=== PATIENT | female | born 1990 | race Caucasian/White ===

== ENCOUNTER 2021-12-02 18:14 | Emergency (ER) | payer OTHER ==
[~2021-12-02] VITALS: Ht 165.1 cm; Wt 111.1 kg
[2021-12-02 18:34] VITALS: BP 151/100
[2021-12-02] MEDS ORDERED: KETOROLAC 30 MG/ML VIAL IM ONE (18:35)
--- NOTE | 2021-12-02 18:37 | NUR ---
pt [facility] assisted to xray
[2021-12-02] MEDS ORDERED: NAPR-1704 PO (18:55)
--- NOTE | 2021-12-02 19:40 | NUR ---
31 y/o female bib self from home, c/o left hand 1st digit pain for 3 months. pt states pain has worsened over the past 3 days. pt has visible swelling in area. denies any recent trauma, overexertion or injury. pt denies numbness, tingling, loss of sensation. a&ox4, ambulates with steady gait. states she took tylenol, motrin, gabapentin with no relief. pmh: denies nka med: tylenol, motrin, gabapentin
[2021-12-02 19:47] VITALS: BP 121/82
== END 2021-12-02 19:45 | disposition home or self-care (01) ==
LOC: MED 18:14
DX: M65.4 Radial styloid tenosynovitis [de Quervain] (principal); Z79.899 Other long term (current) drug therapy
CPT/HCPCS: 29125; 73130; 96372; 99283; J1885

== ENCOUNTER 2021-12-31 06:48 | Outpatient (CLI) | payer OTHER ==
[~2021-12-31 06:48] MED LIST: NAPR-1704 PO
[2021-12-31 07:35] LABS: BASOPHILS % (AUTO) 0.6 % (0.0-2.0); EOSINOPHILS # (AUTO) 0.3 K/uL (0-0.4); EOSINOPHILS % (AUTO) 3.8 % (0.0-4.0); HEMATOCRIT 40.1 % (36-48); HEMOGLOBIN 13.5 g/dL (12.0-16.0); LYMPHOCYTES # (AUTO) 2.2 K/uL (2.5-16.5); LYMPHOCYTES % (AUTO) 29.6 % (20.5-51.1); MEAN CORPUSCULAR HEMOGLOBIN 27 pg (27-31); MEAN CORPUSCULAR HGB CONC 34 g/dL (33-37); MEAN CORPUSCULAR VOLUME 80.4 fL (80-94); MONOCYTES # (AUTO) 0.5 K/uL (0.8-1.0); MONOCYTES % (AUTO) 6.2 % (1.7-9.3); NEUTROPHILS # (AUTO) 4.3 K/uL (1.8-7.7); NEUTROPHILS % (AUTO) 59.8 % (42.2-75.2); PLATELET COUNT (AUTO) 283 K/uL (140-450); RED BLOOD CELL COUNT(AUTO) 4.98 MIL/uL (4.20-5.40); WHITE BLOOD COUNT (AUTO) 7.3 K/uL (4.8-10.8)
[2021-12-31 07:48] LABS: ALBUMIN 3.7 g/dL (3.4-5.0); ANION GAP 12.2 (8-16); CARBON DIOXIDE 27.1 mmol/L (21-32); CHOL/HDL RATIO 3.5 (1-4.5); CREATININE 0.5 mg/dL (0.6-1.3); POTASSIUM 4.3 mmol/L (3.5-5.1); TOTAL BILIRUBIN 0.5 mg/dL (0.0-1.0)
[2021-12-31 11:27] LABS: APPEARANCE,URINE SL CLOUDY (CLEAR); BILIRUBIN,URINE NEGATIVE (NEGATIVE); BLOOD, URINE NEGATIVE (NEGATIVE); COLOR,URINE YELLOW (YELLOW); LEUKOCYTE ESTERASE ,URINE NEGATIVE (NEGATIVE); NITRITE, URINE NEGATIVE (NEGATIVE); UGLUCOSE NEGATIVE (NEGATIVE)
[2022-01-01 15:24] LABS: HEPATITIS B SURFACE ANTIBODY REACTIVE (0.00 - 0.99)
== END 2021-12-31 20:08 | disposition home or self-care (01) ==
LOC: MLB 06:48
PROVIDERS: ATTEND Internal Medicine
DX: Z00.01 Encounter for general adult medical examination with abnormal findings (principal); Z11.3 Encounter for screening for infections with a predominantly sexual mode of transmission; E11.9 Type 2 diabetes mellitus without complications; E66.9 Obesity, unspecified
CPT/HCPCS: 36415; 80053; 81003; 82043; 83036; 83519; 84439; 84681; 85025; 86592; 86702; 86704; 86706; 86803; 87340

== ENCOUNTER 2023-04-30 20:10 | Emergency (ER) | payer OTHER ==
[~2023-04-30] VITALS: Ht 162.6 cm; Wt 120.2 kg
[2023-04-30 20:50] VITALS: BP 150/89; PULSE 95; RESP 17; TEMP 97.8; O2SAT 99
[2023-04-30 20:55] VITALS: BP 150/89; PULSE 95; RESP 17; TEMP 97.8; O2SAT 99
[2023-04-30 22:49] LABS: APPEARANCE,URINE CLEAR (CLEAR); BILIRUBIN,URINE NEGATIVE (NEGATIVE); BLOOD, URINE 3+ (NEGATIVE); COLOR,URINE YELLOW (YELLOW); LEUKOCYTE ESTERASE ,URINE NEGATIVE (NEGATIVE); NITRITE, URINE POSITIVE (NEGATIVE); PROTEIN,URINE 2+ (NEGATIVE); UGLUCOSE 2+ (NEGATIVE); UROBILINOGEN,URINE 0.2 EU/dL (0.2 - 1)
[2023-04-30 23:03] LABS: BACTERIA,URINE >30 (MANY) /HPF (None Seen); WBC,URINE 0-5 /HPF (0-5)
[2023-04-30 23:04] LABS: MUCUS,URINE 1+ /LPF (None Seen); SQUAMOUS EPITHELIAL CELL,UR 0-3 (FEW) /LPF (0-3 (FEW))
[2023-04-30] MEDS ORDERED: CEPH-588 PO (23:16)
== END 2023-04-30 23:29 | disposition home or self-care (01) ==
LOC: MED 20:10
DX: N39.0 Urinary tract infection, site not specified (principal); R73.9 Hyperglycemia, unspecified; Z79.899 Other long term (current) drug therapy
CPT/HCPCS: 81001; 81025; 87086; 99283

== ENCOUNTER 2023-05-09 09:01 | Outpatient (CLI) | payer OTHER ==
[~2023-05-09 09:01] MED LIST changes: +CEPH-588 PO
[2023-05-09 09:32] LABS: BASOPHILS # (AUTO) 0.1 K/uL (0.00-0.22); EOSINOPHILS # (AUTO) 0.3 K/uL (0-0.4); EOSINOPHILS % (AUTO) 3.4 % (0.0-4.0); HEMATOCRIT 42.1 % (36-48); HEMOGLOBIN 14.2 g/dL (12.0-16.0); LYMPHOCYTES # (AUTO) 2.4 K/uL (2.5-16.5); LYMPHOCYTES % (AUTO) 30.7 % (20.5-51.1); MEAN CORPUSCULAR HEMOGLOBIN 27 pg (27-31); MEAN CORPUSCULAR HGB CONC 34 g/dL (33-37); MEAN CORPUSCULAR VOLUME 79.5 fL (80-94); MONOCYTES # (AUTO) 0.5 K/uL (0.8-1.0); MONOCYTES % (AUTO) 5.8 % (1.7-9.3); NEUTROPHILS # (AUTO) 4.6 K/uL (1.8-7.7); NEUTROPHILS % (AUTO) 59.1 % (42.2-75.2); PLATELET COUNT (AUTO) 309 K/uL (140-450); RED BLOOD CELL COUNT(AUTO) 5.29 MIL/uL (4.20-5.40); RED CELL DISTRIBUTION WIDTH 14.1 % (11.6-13.7); WHITE BLOOD COUNT (AUTO) 7.8 K/uL (4.8-10.8)
[2023-05-09 09:37] LABS: BILIRUBIN,URINE NEGATIVE (NEGATIVE); BLOOD, URINE 3+ (NEGATIVE); COLOR,URINE YELLOW (YELLOW); LEUKOCYTE ESTERASE ,URINE NEGATIVE (NEGATIVE); NITRITE, URINE NEGATIVE (NEGATIVE); PROTEIN,URINE NEGATIVE (NEGATIVE); UGLUCOSE TRACE (NEGATIVE); UROBILINOGEN,URINE 0.2 EU/dL (0.2 - 1)
[2023-05-09 09:41] LABS: APPEARANCE,URINE SLIGHTLY HAZY (CLEAR)
[2023-05-09 09:45] LABS: BACTERIA,URINE OCCASSIONAL /HPF (None Seen); SQUAMOUS EPITHELIAL CELL,UR 0-3 (FEW) /LPF (0-3 (FEW)); WBC,URINE 0-5 /HPF (0-5)
[2023-05-09 09:46] LABS: RBC,URINE 50-80 /HPF (0-5)
[2023-05-09 09:57] LABS: ALBUMIN 3.4 g/dL (3.4-5.0); ANION GAP 9.4 (8-16); CALCIUM 8.8 mg/dL (8.5-10.1); CARBON DIOXIDE 29.7 mmol/L (21-32); CHOL/HDL RATIO 4.7 (1-4.5); CREATININE 0.6 mg/dL (0.6-1.3); POTASSIUM 4.1 mmol/L (3.5-5.1); THYROID STIMULATING HORMONE 2.21 uIU/mL (0.34-3.74); TOTAL BILIRUBIN 0.4 mg/dL (0.0-1.0); TOTAL PROTEIN, SERUM 8.1 g/dL (6.4-8.2)
[2023-05-09 10:30] LABS: HIV RAPID SCREEN NON-REACTIVE (NON REACTIV)
[2023-05-10 10:15] LABS: RAPID PLASMA REAGIN NON-REACTIVE (Non Reactiv)
[2023-05-10 15:07] LABS: HEPATITIS B SURFACE ANTIGEN Negative (Negative); HEPATITIS C VIRUS ANTIBODY Non Reactive (Non Reactive)
[2023-05-13 15:51] LABS: HEMOGLOBIN A1C 11.8 % (4.8-5.6); HIV 1/0/2 ABS, QUAL Non-reactive (Non Reactiv)
== END 2023-05-09 19:16 | disposition home or self-care (01) ==
LOC: MLB 09:01
PROVIDERS: ATTEND Internal Medicine
DX: Z11.59 Encounter for screening for other viral diseases (principal); Z11.3 Encounter for screening for infections with a predominantly sexual mode of transmission; I10 Essential (primary) hypertension; E78.5 Hyperlipidemia, unspecified; E03.9 Hypothyroidism, unspecified
CPT/HCPCS: 36415; 80053; 81001; 82306; 82652; 83036; 84443; 85025; 86592; 86702; 86803; 87340; 87491

== ENCOUNTER 2023-07-02 08:26 | Outpatient (CLI) | payer OTHER ==
[2023-07-02 10:08] LABS: ANION GAP 10.6 (8-16); CALCIUM 8.9 mg/dL (8.5-10.1); CREATININE 0.6 mg/dL (0.6-1.3); POTASSIUM 4.6 mmol/L (3.5-5.1)
== END 2023-07-02 22:48 | disposition home or self-care (01) ==
LOC: MLB 08:26
PROVIDERS: ATTEND Internal Medicine
DX: E11.9 Type 2 diabetes mellitus without complications (principal); I10 Essential (primary) hypertension
CPT/HCPCS: 36415; 80048; 83519

== ENCOUNTER 2023-09-29 07:12 | Outpatient (CLI) | payer OTHER ==
[2023-09-29 07:59] LABS: ANION GAP 10.4 (8-16); CALCIUM 8.2 mg/dL (8.5-10.1); CARBON DIOXIDE 27.5 mmol/L (21-32); CREATININE 0.5 mg/dL (0.6-1.3); POTASSIUM 3.9 mmol/L (3.5-5.1)
[2023-09-30 12:06] LABS: HEMOGLOBIN A1C 6.2 % (4.8-5.6)
== END 2023-09-29 17:28 | disposition home or self-care (01) ==
LOC: MLB 07:12
PROVIDERS: ATTEND Internal Medicine
DX: I10 Essential (primary) hypertension (principal); R80.9 Proteinuria, unspecified; E11.9 Type 2 diabetes mellitus without complications
CPT/HCPCS: 36415; 80048; 82043; 83036

== ENCOUNTER 2024-01-01 08:59 | Outpatient (CLI) | payer OTHER ==
[2024-01-01 09:39] LABS: BASOPHILS # (AUTO) 0.1 K/uL (0.00-0.22); BASOPHILS % (AUTO) 1.5 % (0.0-2.0); EOSINOPHILS # (AUTO) 0.4 K/uL (0-0.4); EOSINOPHILS % (AUTO) 4.1 % (0.0-4.0); HEMATOCRIT 38.9 % (36-48); HEMOGLOBIN 12.8 g/dL (12.0-16.0); LYMPHOCYTES # (AUTO) 2.6 K/uL (2.5-16.5); LYMPHOCYTES % (AUTO) 30.5 % (20.5-51.1); MEAN CORPUSCULAR HEMOGLOBIN 26 pg (27-31); MEAN CORPUSCULAR HGB CONC 33 g/dL (33-37); MEAN CORPUSCULAR VOLUME 80.3 fL (80-94); MONOCYTES # (AUTO) 0.4 K/uL (0.8-1.0); MONOCYTES % (AUTO) 5.2 % (1.7-9.3); NEUTROPHILS % (AUTO) 58.7 % (42.2-75.2); PLATELET COUNT (AUTO) 316 K/uL (140-450); RED BLOOD CELL COUNT(AUTO) 4.84 MIL/uL (4.20-5.40); RED CELL DISTRIBUTION WIDTH 14.3 % (11.6-13.7); WHITE BLOOD COUNT (AUTO) 8.6 K/uL (4.8-10.8)
[2024-01-01 10:35] LABS: ALBUMIN 3.6 g/dL (3.4-5.0); ANION GAP 9.2 (8-16); CALCIUM 8.6 mg/dL (8.5-10.1); CARBON DIOXIDE 30.5 mmol/L (21-32); CHOL/HDL RATIO 3.1 (1-4.5); CREATININE 0.6 mg/dL (0.6-1.3); POTASSIUM 4.7 mmol/L (3.5-5.1); THYROID STIMULATING HORMONE 1.66 uIU/mL (0.34-3.74); TOTAL BILIRUBIN 0.6 mg/dL (0.0-1.0); TOTAL PROTEIN, SERUM 7.2 g/dL (6.4-8.2)
[2024-01-02 12:08] LABS: MICROALBUMIN, UR RANDOM 22.6 ug/mL (Not Estab.)
[2024-01-02 20:10] LABS: HEMOGLOBIN A1C 6.9 % (4.8-5.6)
== END 2024-01-01 21:04 | disposition home or self-care (01) ==
LOC: MLB 08:59
PROVIDERS: ATTEND Family Medicine
DX: I10 Essential (primary) hypertension (principal); E11.9 Type 2 diabetes mellitus without complications
CPT/HCPCS: 36415; 80053; 82043; 82306; 83036; 84443; 85025